=== PATIENT | female | born 1970 | race Caucasian/White ===

== ENCOUNTER 2019-07-03 16:12 | Emergency (ER) | payer BC ==
[~2019-07-03] VITALS: Ht 170.2 cm; Wt 65.0 kg
--- NOTE | 2019-07-03 16:59 | NUR ---
PT RESTING IN BED AT THSI TIME. PULSE OX AND NIBP MONITORING IN PLACE. PT IN MASK AT THSI TIME. PLACED IN DROPLET PRECAUTIONS.
[2019-07-03 17:25] LABS: ANION GAP 7 mmol/L (5-15); CHLORIDE 107 mmol/L (98-107); CREATININE 0.59 mg/dL (0.55-1.02)
[2019-07-03 17:29] LABS: TROPONIN I < 0.015 ng/mL (0.000-0.045)
[2019-07-03 17:33] VITALS: BP 110/71
[2019-07-03 17:56] LABS: BASOPHILS # (AUTO) 0.04 x10^3/uL (0-0.1); BASOPHILS % (AUTO) 0 % (0-1); EOSINOPHILS # (AUTO) 0.03 x10^3/uL (0-0.4); EOSINOPHILS % (AUTO) 0 % (1-7); LYMPHOCYTES # (AUTO) 1.27 x10^3/uL (1-3.4); LYMPHOCYTES % (AUTO) 15 % (22-44); MD NO; MEAN CORPUSCULAR HEMOGLOBIN 30.3 pg (27.0-34.8); MEAN CORPUSCULAR HGB CONC 33.9 g/dL (32.4-35.8); MEAN CORPUSCULAR VOLUME 89.2 fL (80-100); MEAN PLATELET VOLUME 10.1 fL (7.4-10.4); MONOCYTES % (AUTO) 5 % (2-9); NEUTROPHILS # (AUTO) 6.98 x10^3/uL (1.8-6.8); NEUTROPHILS % (AUTO) 80 % (42-75); PLATELET COUNT 181 x10^3/uL (130-400); RED BLOOD COUNT 4.46 x10^6/uL (3.82-5.3); RED CELL DISTRIBUTION WIDTH 13.4 % (9.6-15.2)
== END 2019-07-03 18:23 | disposition home or self-care (01) ==
LOC: ED 17:01
DX: R09.1 Pleurisy (principal); B34.9 Viral infection, unspecified
CPT/HCPCS: 36415; 71045; 80048; 82040; 84484; 85025; 93005; 99285

== ENCOUNTER 2019-10-18 14:16 | Outpatient (CLI) | payer BC | END 2019-10-18 23:59 | disposition home or self-care (01) | LOC: CFH 14:16 | PROVIDERS: ATTEND Family Medicine | DX: Z12.31 Encounter for screening mammogram for malignant neoplasm of breast (principal); R00.2 Palpitations | CPT/HCPCS: 77067; 93306 ==